=== PATIENT | female | born 1985 | race Caucasian/White ===

== ENCOUNTER 2021-11-23 14:34 | Emergency (ER) | payer SELFPAY ==
[~2021-11-23] VITALS: Ht 172.7 cm; Wt 140.6 kg
[2021-11-23 14:39] VITALS: BP_SYST 137
--- NOTE | 2021-11-23 14:39 | NUR ---
Placed in room 7 . Placed on stereotyper helper, blood pressure machine and pulse oximeter. To gown for exam. Side rails up. Report given to PABLITO GUERRERO.
--- NOTE | 2021-11-23 14:40 | NUR ---
Pt brought by self, A&Ox4, pt presents to ER with pain in the back of head after poss syncope/ seizure episode, per patient she blacked out while talking to a friend yesterday at 1900, per friend she was clunching her teeth for few seconds, no incontinence/tremors or other symptoms noted during or after episode, pt denies history of seizures, skin pink and warm, ambulatory , cap refill <3.
--- NOTE | 2021-11-23 15:01 | NUR ---
ER DR. ESTRADA AT THE BEDSIDE
[2021-11-23 15:25] LABS: BILIRUBIN,URINE NEGATIVE (NEGATIVE); BLOOD, URINE NEGATIVE (NEGATIVE); CLARITY/URINE CLEAR (CLEAR); COLOR,URINE YELLOW (YELLOW); GLUCOSE,URINE NEGATIVE (NEGATIVE); KETONES,URINE NEGATIVE (NEGATIVE); LEUKOCYTE ESTERASE ,URINE NEGATIVE (NEGATIVE); NITRITE, URINE NEGATIVE (NEGATIVE); PROTEIN URINE NEGATIVE (NEGATIVE); UROBILINOGEN,URINE 0.2 (0.2-1.0)
[2021-11-23 15:37] LABS: BARBITURATE, URINE NEGATIVE (NEG <=200); BENZODIAZEPINE, URINE NEGATIVE (NEG <=150); CANNABINOID, URINE POSITIVE (NEG <=50); COCAINE, URINE NEGATIVE (NEG <=150); METHAMPHETAMINES SCREEN,URINE NEGATIVE (NEG <=500); OPIATE, URINE NEGATIVE (NEG <=100); PHENCYCLIDINE SCREEN,URINE NEGATIVE (NEG <=25); UR TRICYCLIC ANTIDEPRESSANTS NEGATIVE (NEG <=300); URINE AMPHETAMINE NEGATIVE (NEG <=500); URINE METHADONE NEGATIVE (NEG <=200); URINE OXYCODONE SCREEN NEGATIVE (NEG <=100); URINE PROPOXYPHENE SCREEN NEGATIVE (NEG <=300)
[2021-11-23 15:40] LABS: BASOPHILS # (AUTO) 0.1 K/uL (0.0-0.2); BASOPHILS % (AUTO) 0.8 % (0.0-2.0); EOSINOPHILS # (AUTO) 0.2 K/uL (0.0-0.4); EOSINOPHILS % (AUTO) 2.1 % (0.0-4.0); HEMATOCRIT 40.6 % (36-48); HEMOGLOBIN 13.6 g/dL (12.0-16.0); LYMPHOCYTES # (AUTO) 2.6 K/uL (1.0-5.5); LYMPHOCYTES % (AUTO) 28.9 % (20.5-51.5); MEAN CORPUSCULAR HEMOGLOBIN 30 pg (27-31); MEAN CORPUSCULAR HGB CONC 34 % (32-36); MEAN CORPUSCULAR VOLUME 90 fL (79.0-98.0); MONOCYTES # (AUTO) 0.4 K/uL (0.0-1.0); MONOCYTES % (AUTO) 4.4 % (1.7-9.3); NEUTROPHILS # (AUTO) 5.7 K/uL (1.8-7.7); NEUTROPHILS % (AUTO) 63.8 % (40.0-70.0); PLATELET COUNT (AUTO) 338 K/uL (130-430); RED BLOOD CELL COUNT(AUTO) 4.52 MIL/uL (4.2-6.2); RED CELL DISTRIBUTION WIDTH 13.7 % (9.0-15.0); WHITE BLOOD COUNT (AUTO) 8.9 K/uL (4.8-10.8)
[2021-11-23 15:58] LABS: ANION GAP 6 (5-15); CALCIUM 9.5 mg/dL (8.4-11.0); CHLORIDE 101 mmol/L (98-107); CREATININE 0.96 mg/dL (0.55-1.30); GLUCOSE 112 mg/dL (70-99); POTASSIUM 3.4 mmol/L (3.5-5.1); SODIUM SERUM 137 mmol/L (136-145); UREA NITROGEN, BLOOD 17 mg/dL (8-21)
[2021-11-23 16:06] LABS: ACETAMINOPHEN 4 ug/mL (1-30); ALANINE AMINOTRANSFERASE 53 U/L (12-78); ALBUMIN 3.6 g/dL (3.4-4.8); ASPARTATE AMINOTRANSFERASE 26 U/L (10-37); TOTAL BILIRUBIN 0.2 mg/dL (0.0-1.0)
[2021-11-23 16:22] LABS: ALCOHOL, BLOOD < 3 mg/dL (<10); GFR AFRICAN AMERICAN 85 mL/min (>90)
--- NOTE | 2021-11-23 17:08 | NUR ---
Pt A&Ox4, VSS, respirations even and unlabored, cap refill <3.
[2021-11-23] MEDS ORDERED: NACL 0.9% 1,000 ML IV ONE (17:15)
--- NOTE | 2021-11-23 17:33 | NUR ---
Dr Templeton given results to patient at this time
[2021-11-23 18:30] VITALS: BP_SYST 132
--- NOTE | 2021-11-23 18:31 | NUR ---
Patient given written and verbal discharge instructions and verbalizes understanding. ER MD discussed with patient the results and treatment provided. Patient in stable condition. ID arm band removed. NO Rx given. Patient educated on pain management and to follow up with PMD. Pain Scale 0/10. Opportunity for questions provided and answered. Medication side effect fact sheet provided.
== END 2021-11-23 18:31 | disposition home or self-care (01) ==
LOC: SED 14:34
DX: R55 Syncope and collapse (principal)
CPT/HCPCS: 36415; 70450; 71045; 76376; 80053; 80307; 81003; 81025; 84484; 85025; 93005; 96360; 99285; G0480; J7030; G0481; G0482

== ENCOUNTER 2023-03-02 12:52 | Emergency (ER) | payer SELFPAY ==
[~2023-03-02] VITALS: Ht 175.3 cm; Wt 127.0 kg
[~2023-03-02 12:52] MED LIST: HYDR-3917 PO; IBUP-1971 PO
[2023-03-02 13:08] VITALS: BP_SYST 157
--- NOTE | 2023-03-02 13:14 | NUR ---
Patient triaged and placed in waiting room. VSS and patient appears in no acute distress at this time. Accompanied by SELF, awaiting available bed, and MD notified of need for MSE.
--- NOTE | 2023-03-02 13:14 | NUR ---
COVID AND INFLUENZA SWABS COLLECTED AND SENT TO LAB.
--- NOTE | 2023-03-02 13:15 | NUR ---
COVID AND FLU SAMPLES OBTAINED AND TAKEN TO LAB.
--- NOTE | 2023-03-02 13:15 | NUR ---
DR. MILELR IN TRIAGE ROOM TO ASSESS PT.
[2023-03-02] MEDS ORDERED: IPRATROPIUM BROM 0.5 MG/2.5 ML VIAL.NEB (ATROVENT) INH ONE (13:30)
[2023-03-02] MEDS ORDERED: ALBUTEROL SULFATE 0.083% 2.5 MG/3 ML VIAL.NEB INH ONE (13:30)
--- NOTE | 2023-03-02 15:00 | NUR ---
DR. MILLER IN TRIAGE ROOM TO DISCUSS POC.
[2023-03-02] MEDS ORDERED: PRED20TA PO (15:02)
--- NOTE | 2023-03-02 15:17 | NUR ---
Patient given written and verbal discharge instructions and verbalizes understanding. ER MD discussed with patient the results and treatment provided. Patient in stable condition. ID arm band removed. Rx of PREDNISONE given. Patient educated on pain management and to follow up with PMD. Pain Scale 0/10. Opportunity for questions provided and answered. Medication side effect fact sheet provided.
[2023-03-02 15:18] VITALS: BP_SYST 142
== END 2023-03-02 15:17 | disposition home or self-care (01) ==
LOC: SED 12:52
DX: J45.901 Unspecified asthma with (acute) exacerbation (principal); R05.9 Cough, unspecified; R06.02 Shortness of breath; Z79.899 Other long term (current) drug therapy; Z20.822 Contact with and (suspected) exposure to COVID-19
CPT/HCPCS: 36415; 71045; 94640; 99284; 87804 ×2; 87426; J7613

== ENCOUNTER 2024-01-14 18:31 | Emergency (ER) | payer SELFPAY ==
[~2024-01-14] VITALS: Ht 170.2 cm; Wt 136.1 kg
[2024-01-14 18:31] VITALS: BP_SYST 168; PULSE 100; RESP 18; TEMP 98.9; O2SAT 98
[~2024-01-14 18:31] MED LIST changes: +PRED20TA PO
[2024-01-14 23:49] LABS: BASOPHILS % (AUTO) 0.5 % (0.0-2.0); EOSINOPHILS # (AUTO) 0.2 K/uL (0.0-0.4); EOSINOPHILS % (AUTO) 1.6 % (0.0-4.0); HEMATOCRIT 45.2 % (36-48); HEMOGLOBIN 15.1 g/dL (12.0-16.0); LYMPHOCYTES # (AUTO) 2.4 K/uL (1.0-5.5); LYMPHOCYTES % (AUTO) 25.2 % (20.5-51.5); MEAN CORPUSCULAR HEMOGLOBIN 30 pg (27-31); MEAN CORPUSCULAR HGB CONC 34 % (32-36); MEAN CORPUSCULAR VOLUME 90 fL (79.0-98.0); MONOCYTES # (AUTO) 0.4 K/uL (0.0-1.0); MONOCYTES % (AUTO) 4.3 % (1.7-9.3); NEUTROPHILS # (AUTO) 6.7 K/uL (1.8-7.7); NEUTROPHILS % (AUTO) 68.4 % (40.0-70.0); PLATELET COUNT (AUTO) 328 K/uL (130-430); RED BLOOD CELL COUNT(AUTO) 5.05 MIL/uL (4.2-6.2); RED CELL DISTRIBUTION WIDTH 13.8 % (9.0-15.0); WHITE BLOOD COUNT (AUTO) 9.7 K/uL (4.8-10.8)
[2024-01-15] MEDS ORDERED: ACETAMINOPHEN 500 MG TABLET ONE ×2 (00:09→00:13)
[2024-01-15] MEDS: KETOROLAC TROMETHAMINE 30 MG VIAL IM ONE (00:15)
[2024-01-15 00:24] LABS: ALANINE AMINOTRANSFERASE 33 U/L (12-78); ALBUMIN 3.7 g/dL (3.4-4.8); ANION GAP 11 (5-15); ASPARTATE AMINOTRANSFERASE 11 U/L (10-37); BILIRUBIN,DIRECT 0.1 mg/dL (0.0-0.3); CALCIUM 9.1 mg/dL (8.4-11.0); CARBON DIOXIDE 27 mmol/L (23-29); CHLORIDE 104 mmol/L (98-107); CREATININE 0.81 mg/dL (0.55-1.30); GFR AFRICAN AMERICAN 102 mL/min (>90); GLUCOSE 95 mg/dL (74-106); LIPASE 29 U/L (16-77); POTASSIUM 4.3 mmol/L (3.5-5.1); SODIUM SERUM 142 mmol/L (136-145); THYROID STIMULATING HORMONE 3.94 uIu/mL (0.34-4.82); TOTAL BILIRUBIN 0.4 mg/dL (0.0-1.0); TOTAL PROTEIN, SERUM 7.7 g/dL (6.4-8.3); UREA NITROGEN, BLOOD 8 mg/dL (8-21)
[2024-01-15 00:25] LABS: GFR NON AFRICAN-AMERICAN 84 mL/min (>90)
[2024-01-15] MEDS: ACETAMINOPHEN 500 MG TABLET PO ONE (00:27)
[2024-01-15 00:47] VITALS: BP_SYST 163; PULSE 79; RESP 18; TEMP 97.7; O2SAT 98
== END 2024-01-15 00:47 | disposition home or self-care (01) ==
LOC: SED 18:31
DX: R53.83 Other fatigue (principal); K80.10 Calculus of gallbladder with chronic cholecystitis without obstruction; F41.9 Anxiety disorder, unspecified; J45.909 Unspecified asthma, uncomplicated; F32.A Depression, unspecified; Z79.899 Other long term (current) drug therapy
CPT/HCPCS: 99285; 71045; 80076; 80048; 83690; 84443; 85025; 84484; 36415; 93005; 81025; 96372; J1885

== ENCOUNTER 2024-01-19 15:23 | Emergency (ER) | payer SELFPAY ==
[~2024-01-19] VITALS: Ht 172.7 cm; Wt 136.1 kg
[2024-01-19 15:46] VITALS: BP_SYST 165; PULSE 85; RESP 16; TEMP 97.9; O2SAT 96
[2024-01-19] MEDS: NACL 0.9% 1,000 ML IV ONE (16:15)
[2024-01-19] MEDS: ONDANSETRON HCL 4 MG/2 ML VIAL IVP ONE (16:15)
[2024-01-19 16:24] LABS: BASOPHILS # (AUTO) 0.1 K/uL (0.0-0.2); BASOPHILS % (AUTO) 0.6 % (0.0-2.0); EOSINOPHILS # (AUTO) 0.2 K/uL (0.0-0.4); HEMOGLOBIN 15.3 g/dL (12.0-16.0); LYMPHOCYTES # (AUTO) 2.2 K/uL (1.0-5.5); LYMPHOCYTES % (AUTO) 21.4 % (20.5-51.5); MEAN CORPUSCULAR HEMOGLOBIN 30 pg (27-31); MEAN CORPUSCULAR HGB CONC 34 % (32-36); MEAN CORPUSCULAR VOLUME 89 fL (79.0-98.0); MONOCYTES # (AUTO) 0.5 K/uL (0.0-1.0); MONOCYTES % (AUTO) 5.1 % (1.7-9.3); NEUTROPHILS # (AUTO) 7.2 K/uL (1.8-7.7); NEUTROPHILS % (AUTO) 70.9 % (40.0-70.0); PLATELET COUNT (AUTO) 351 K/uL (130-430); RED BLOOD CELL COUNT(AUTO) 5.08 MIL/uL (4.2-6.2); RED CELL DISTRIBUTION WIDTH 13.4 % (9.0-15.0); WHITE BLOOD COUNT (AUTO) 10.2 K/uL (4.8-10.8)
[2024-01-19 16:40] LABS: ALBUMIN 3.8 g/dL (3.4-4.8); BILIRUBIN,DIRECT 0.2 mg/dL (0.0-0.3); CALCIUM 9.5 mg/dL (8.4-11.0); CREATININE 0.85 mg/dL (0.55-1.30); TOTAL BILIRUBIN 0.6 mg/dL (0.0-1.0); TOTAL PROTEIN, SERUM 7.8 g/dL (6.4-8.3)
[2024-01-19] MEDS ORDERED: DICY10SO PO (17:29)
[2024-01-19] MEDS ORDERED: ONDA-8 TL (17:41)
[2024-01-19 19:09] VITALS: BP_SYST 165; PULSE 85; RESP 16; TEMP 97.9; O2SAT 96
== END 2024-01-19 19:09 | disposition home or self-care (01) ==
LOC: SED 15:23
DX: K80.20 Calculus of gallbladder without cholecystitis without obstruction (principal); J45.909 Unspecified asthma, uncomplicated; F32.A Depression, unspecified; F41.9 Anxiety disorder, unspecified; Z79.899 Other long term (current) drug therapy
CPT/HCPCS: 36415; 76705; 80048; 80076; 83690; 85025; 99284